=== PATIENT | female | born 1995 | race Two or more races ===

== ENCOUNTER 2019-12-12 10:20 | Outpatient (CLI) | payer BC ==
[2019-12-12 11:21] LABS: BASOPHILS # (AUTO) 0.1 /CMM (0.0-0.2); EOSINOPHILS % (AUTO) 1.9 % (0.0-6.0); HEMATOCRIT 33 % (33-45); HEMOGLOBIN 10.7 g/dL (11.5-14.8); LYMPHOCYTES # (AUTO) 1.6 /CMM (0.8-4.8); LYMPHOCYTES % (AUTO) 25.4 % (20.0-44.0); MEAN CORPUSCULAR HGB CONC 33 g/dl (31.0-36.0); MEAN CORPUSCULAR VOLUME 76 fL (82-100); MONOCYTES # (AUTO) 0.3 /CMM (0.1-1.30); MONOCYTES % (AUTO) 5.1 % (2.0-12.0); NEUTROPHILS # (AUTO) 4.3 /CMM (1.8-8.9); NEUTROPHILS % (AUTO) 66.6 % (43.0-81.0); PLATELET COUNT (AUTO) 290 /CMM (150-450); RED BLOOD CELL COUNT(AUTO) 4.35 MIL/uL (4.0-5.2); WHITE BLOOD COUNT (AUTO) 6.4 K/uL (4.3-11.0)
[2019-12-12 11:23] LABS: ALBUMIN 3.9 g/dL (3.4-5.0); BILIRUBIN,TOTAL 0.4 mg/dL (0.2-1.0); CALCIUM, SERUM 9.3 mg/dL (8.5-10.1); CREATININE 0.7 mg/dL (0.6-1.3); POTASSIUM 4.1 mmol/L (3.5-5.1); TOTAL PROTEIN, SERUM 7.2 g/dL (6.4-8.2)
[2019-12-12 11:34] LABS: THYROID STIMULATING HORMONE 2.297 uIU/mL (0.358-3.74)
[2019-12-12 12:19] LABS: APPEARANCE,URINE CLOUDY (CLEAR); BILIRUBIN,URINE NEGATIVE (NEGATIVE); BLOOD, URINE MODERATE Ery/uL (NEGATIVE); COLOR,URINE YELLOW (YELLOW); KETONES,URINE NEGATIVE (NEGATIVE); LEUKOCYTE ESTERASE ,URINE MODERATE (NEGATIVE); NITRITE, URINE NEGATIVE (NEGATIVE); PROTEIN,URINE NEGATIVE (NEGATIVE); UGLUCOSE NEGATIVE (NEGATIVE); UROBILINOGEN,URINE 0.2 EU/dL (0.2)
[2019-12-12 13:00] LABS: BACTERIA,URINE Moderate /HPF (None Seen); SQUAMOUS EPITHELIAL CELL,UR Moderate /HPF (None Seen)
[2019-12-13 07:10] LABS: FOLLICLE STIMULATION HORMONE 4.9 mIU/mL (.); LUTEINIZING HORMONE 9.8 mIU/mL (.); PROLACTIN 10.3 ng/mL (4.8-23.3)
== END 2019-12-12 23:59 | disposition home or self-care (01) ==
LOC: LAB 10:20
PROVIDERS: ATTEND Family Medicine
DX: Z00.01 Encounter for general adult medical examination with abnormal findings (principal); R89.1 Abnormal level of hormones in specimens from other organs, systems and tissues
CPT/HCPCS: 36415; 80053-TC; 80061-TC; 81000-TC; 83001; 83002; 84146; 84439-TC; 84443-TC; 85025-TC; 87086-TC

== ENCOUNTER 2020-01-03 14:42 | Outpatient (CLI) | payer BC ==
[2020-01-03 16:03] LABS: BASOPHILS # (AUTO) 0.1 /CMM (0.0-0.2); BASOPHILS % (AUTO) 1.4 % (0.0-2.0); EOSINOPHILS % (AUTO) 1.2 % (0.0-6.0); HEMATOCRIT 33 % (33-45); HEMOGLOBIN 10.5 g/dL (11.5-14.8); LYMPHOCYTES # (AUTO) 1.3 /CMM (0.8-4.8); MEAN CORPUSCULAR HGB CONC 32 g/dl (31.0-36.0); MEAN CORPUSCULAR VOLUME 76 fL (82-100); MONOCYTES # (AUTO) 0.3 /CMM (0.1-1.30); MONOCYTES % (AUTO) 4.4 % (2.0-12.0); NEUTROPHILS # (AUTO) 5.3 /CMM (1.8-8.9); PLATELET COUNT (AUTO) 311 /CMM (150-450); RED BLOOD CELL COUNT(AUTO) 4.34 MIL/uL (4.0-5.2); WHITE BLOOD COUNT (AUTO) 7.1 K/uL (4.3-11.0)
[2020-01-03 16:14] LABS: IRON, SERUM 35 ug/dl (50-175); TOTAL IRON BINDING CAPACITY 809 ug/dl (250-450)
[2020-01-03 16:32] LABS: FERRITIN 8 ng/mL (8-388)
== END 2020-01-03 23:59 | disposition home or self-care (01) ==
LOC: LAB 14:42
PROVIDERS: ATTEND Family Medicine
DX: D64.9 Anemia, unspecified (principal); E61.1 Iron deficiency; R89.1 Abnormal level of hormones in specimens from other organs, systems and tissues
CPT/HCPCS: 36415; 82728-TC; 83540-TC; 85025-TC

== ENCOUNTER 2020-02-14 14:28 | Outpatient (CLI) | payer BC | END 2020-02-14 23:59 | disposition home or self-care (01) | DX: R13.10 Dysphagia, unspecified (principal); E53.9 Vitamin B deficiency, unspecified ==

== ENCOUNTER 2020-06-07 08:40 | Outpatient (CLI) | payer BC ==
[2020-06-07 09:26] LABS: BASOPHILS # (AUTO) 0.1 /CMM (0.0-0.2); BASOPHILS % (AUTO) 1.3 % (0.0-2.0); EOSINOPHILS % (AUTO) 2.3 % (0.0-6.0); HEMATOCRIT 37 % (33-45); HEMOGLOBIN 12.9 g/dL (11.5-14.8); LYMPHOCYTES # (AUTO) 1.3 /CMM (0.8-4.8); LYMPHOCYTES % (AUTO) 23.7 % (20.0-44.0); MEAN CORPUSCULAR HGB CONC 35 g/dl (31.0-36.0); MEAN CORPUSCULAR VOLUME 92 fL (82-100); MONOCYTES # (AUTO) 0.3 /CMM (0.1-1.30); MONOCYTES % (AUTO) 4.6 % (2.0-12.0); NEUTROPHILS # (AUTO) 3.9 /CMM (1.8-8.9); NEUTROPHILS % (AUTO) 68.1 % (43.0-81.0); PLATELET COUNT (AUTO) 242 /CMM (150-450); RED BLOOD CELL COUNT(AUTO) 4.08 MIL/uL (4.0-5.2); WHITE BLOOD COUNT (AUTO) 5.7 K/uL (4.3-11.0)
[2020-06-07 09:27] LABS: BILIRUBIN,URINE NEGATIVE (NEGATIVE); COLOR,URINE YELLOW (YELLOW); LEUKOCYTE ESTERASE ,URINE TRACE (NEGATIVE); NITRITE, URINE NEGATIVE (NEGATIVE); PROTEIN,URINE NEGATIVE (NEGATIVE); UGLUCOSE NEGATIVE (NEGATIVE); UROBILINOGEN,URINE 0.2 EU/dL (0.2)
[2020-06-07 09:49] LABS: ALBUMIN 3.9 g/dL (3.4-5.0); CREATININE 0.6 mg/dL (0.6-1.3); POTASSIUM 3.9 mmol/L (3.5-5.1); TOTAL PROTEIN, SERUM 6.9 g/dL (6.4-8.2)
[2020-06-07 10:23] LABS: RBC,URINE 0-2 /HPF (0-2)
[2020-06-07 10:24] LABS: BACTERIA,URINE Moderate /HPF (None Seen); SQUAMOUS EPITHELIAL CELL,UR Moderate /HPF (None Seen); WBC,URINE 0-3 /HPF (0-3)
[2020-06-08 09:08] LABS: FOLIC ACID 9.7 ng/mL (>3.0)
== END 2020-06-07 23:59 | disposition home or self-care (01) ==
LOC: LAB 08:40
PROVIDERS: ATTEND Family Medicine
DX: K21.9 Gastro-esophageal reflux disease without esophagitis (principal); E53.9 Vitamin B deficiency, unspecified; K59.09 Other constipation; Z79.899 Other long term (current) drug therapy
CPT/HCPCS: 36415; 80053-TC; 80061-TC; 81001; 82306; 84439-TC; 84443-TC; 85025-TC; 87086-TC

== ENCOUNTER 2020-09-07 08:57 | Outpatient (CLI) | payer BC ==
[2020-09-07 10:38] LABS: BASOPHILS # (AUTO) 0.1 /CMM (0.0-0.2); BASOPHILS % (AUTO) 1.2 % (0.0-2.0); EOSINOPHILS % (AUTO) 2.7 % (0.0-6.0); HEMATOCRIT 40 % (33-45); HEMOGLOBIN 13.7 g/dL (11.5-14.8); LYMPHOCYTES # (AUTO) 1.5 /CMM (0.8-4.8); LYMPHOCYTES % (AUTO) 26.9 % (20.0-44.0); MEAN CORPUSCULAR HGB CONC 35 g/dl (31.0-36.0); MEAN CORPUSCULAR VOLUME 91 fL (82-100); MONOCYTES # (AUTO) 0.3 /CMM (0.1-1.30); MONOCYTES % (AUTO) 4.7 % (2.0-12.0); NEUTROPHILS # (AUTO) 3.7 /CMM (1.8-8.9); NEUTROPHILS % (AUTO) 64.5 % (43.0-81.0); PLATELET COUNT (AUTO) 238 /CMM (150-450); RED BLOOD CELL COUNT(AUTO) 4.34 MIL/uL (4.0-5.2); WHITE BLOOD COUNT (AUTO) 5.8 K/uL (4.3-11.0)
[2020-09-07 11:29] LABS: THYROID STIMULATING HORMONE 1.791 uIU/mL (0.358-3.74)
[2020-09-07 11:41] LABS: ALBUMIN 4.1 g/dL (3.4-5.0); BILIRUBIN,TOTAL 0.7 mg/dL (0.2-1.0); CALCIUM, SERUM 9.4 mg/dL (8.5-10.1); CREATININE 0.6 mg/dL (0.6-1.3); POTASSIUM 4.1 mmol/L (3.5-5.1); TOTAL PROTEIN, SERUM 7.5 g/dL (6.4-8.2)
[2020-09-08 04:06] LABS: THYROID PEROXIDASE (TPO) AB <9 IU/mL (0-34)
== END 2020-09-07 23:59 | disposition home or self-care (01) ==
LOC: US 08:57
PROVIDERS: ATTEND Family Medicine
DX: R53.83 Other fatigue (principal); R10.819 Abdominal tenderness, unspecified site
CPT/HCPCS: 36415; 76700-TC; 80053-TC; 80061-TC; 82607-TC; 82728-TC; 83540-TC; 84439-TC; 84443-TC; 85025-TC; 86376; 86800

== ENCOUNTER 2020-09-19 11:12 | Outpatient (CLI) | payer BC | END 2020-09-19 23:59 | disposition home or self-care (01) | LOC: LAB 11:12 | PROVIDERS: ATTEND Family Medicine | DX: R53.83 Other fatigue (principal) | CPT/HCPCS: 36415; 84146 ==

== ENCOUNTER 2020-11-02 19:50 | Inpatient (IN) | payer BC ==
[~2020-11-02] VITALS: Ht 170.2 cm; Wt 96.6 kg
[2020-11-02 21:30] VITALS: BP 131/85
--- NOTE | 2020-11-02 21:50 | NUR ---
RN NOTES PAGED DR. TAN FOR ADMISSION ORDERS.
[2020-11-02] MEDS ORDERED: FLUO10CA26 PO (22:25)
[2020-11-02] MEDS ORDERED: CYAN-51 PO (22:25)
[2020-11-02] MEDS ORDERED: POLY17PO4 PO (22:25)
[2020-11-02] MEDS ORDERED: VIT500LI PO (22:25)
[2020-11-02] MEDS ORDERED: MAGN400T8 PO (22:25)
[2020-11-02] MEDS ORDERED: PANT40TA2 PO (22:25)
--- NOTE | 2020-11-02 22:27 | NUR ---
RN NOTES ADMISSION ORDERS RECEIVED FROM DR. TAN, CARRIED OUT.
[2020-11-02] MEDS ORDERED: MAG HYDROX/AL HYDROX/SIMETH 30 ML UDC PO PRN (23:00)
[2020-11-02] MEDS ORDERED: Z GUARD REMEDY 2 OZ OINT TP PRN (23:00)
[2020-11-02] MEDS ORDERED: ONDANSETRON HCL/PF 4 MG/2 ML VIAL IVP PRN (23:00)
[2020-11-02] MEDS ORDERED: MAGNESIUM HYDROXIDE 30 ML UDC PO PRN (23:00)
[2020-11-02] MEDS ORDERED: ZOLPIDEM TARTRATE 5 MG TABLET PO PRN (23:00)
--- NOTE | 2020-11-02 23:53 | NUR ---
[facility] ADMITTING NOTES ADMITTED A 25 Y/O FEMALE PATIENT VIA DIRECT ADMISSION. PATIENT ARRIVED VIA GURNEY FROM [facility] ACCOMPANIED BY 2 EMT'S FROM [facility] AND PATIENT'S PARENTS. PATIENT IS ALERT AND ORIENTED X 4. ON ROOM AIR TOLERATING WELL, NO SIGNS AND SYMPTOMS OF ACUTE DISTRESS NOTED. VITAL SIGNS TAKEN AND RECORDED. AFEBRILE, VS WITHIN NORMAL LIMITS. NOTED WITH IV ACCESS ON PATIENT'S RIGHT AC, PATENT AND FLUSHES WELL. NO REDNESS NOTED. NOTED WITH ABSCESS NO PERIRECTAL AREA. PICTURE TAKEN AND FILED TO CHART. NO COMPLAINTS OF PAIN AT THE TIME OF ASSESSMENT. SAFETY PRECAUTIONS IN PLACE; BED ON LOWEST LOCKED POSITION, SIDE RAILS UP X 2. ARMBAND PLACED ON PATIENT'S RIGHT WRIST. KEPT CALL LIGHT WITHIN EASY REACH. INSTRUCTED TO CALL FOR ASSISTANCE WHEN NEEDED. PATIENT VERBALIZED UNDERSTANDING. DR. TAN MADE AWARE OF ADMISSION VIA PHONE CALL. WILL CONTINUE TO MONITOR PATIENT'S CURRENT STATUS. Addendum: 11/03/20 at 0009 by KAILA ROSS RN ABOVE NOTES FOR 2124 ADMISSION.
[2020-11-03] MEDS ORDERED: PIPERACILLIN /TAZOBACTAM 3.375 G in IV D5W 50 ML IV SCH
[2020-11-03] MEDS ORDERED: VANCOMYCIN 1 GM VIAL ONE ×2 (00:54→00:57)
[2020-11-03] MEDS ORDERED: VANCOMYCIN 1.5 GM in IV D5W 500ml IV ONE (01:00)
--- NOTE | 2020-11-03 01:30 | NUR ---
RN NOTES INITIAL DOSE OF VANCOMYCIN 1.5GMS IN 500ML NS ADMINISTERED ORDERED, TOLERATING WELL, NO A/R NOTED.
[2020-11-03] MEDS ORDERED: MEROPENEM 1 G VIAL IV ONE (04:31)
[2020-11-03] MEDS ORDERED: MEROPENEM 1 G in IV NS 0.9% 100 ML IV ONE (05:00)
--- NOTE | 2020-11-03 05:00 | NUR ---
MSRN FIRST DOSE OF MERREM ADMINISTERED NO UNTOWARD REACTION. BRP VOIDED FREELY.
--- NOTE | 2020-11-03 06:34 | NUR ---
MSRN WOUND FOR CULTURE AND GRAM STAIN SENT TO LAB. MRSA SURVEILLANCE SENT
--- NOTE | 2020-11-03 06:39 | NUR ---
MS RN CLOSING NOTES PATIENT IN BED, AWAKE, MOTHER AT BEDSIDE. PATIENT IS ON ROOM AIR TOLERATING WELL,NO SOB NOTED, NO SIGNS AND SYMPTOMS OF ACUTE DISTRESS NOTED. VS WITHIN NORMAL LIMITS. IV ACCESS ON PATIENT'S RIGHT AC, PATENT AND FLUSHES WELL. NO REDNESS NOTED. NO COMPLAINTS OF PAIN AT THIS TIME. WOUND CONSULT TRIGGERED. SAFETY PRECAUTIONS IN PLACE; BED ON LOWEST LOCKED POSITION, SIDE RAILS UP X 2. KEPT CALL LIGHT WITHIN EASY REACH. ENDORSED TO MORNING NURSE FOR CONTINUITY OF CARE.
[2020-11-03 06:51] LABS: BASOPHILS % (AUTO) 0.8 % (0.0-2.0); EOSINOPHILS % (AUTO) 2.4 % (0.0-6.0); HEMATOCRIT 31 % (33-45); HEMOGLOBIN 10.8 g/dL (11.5-14.8); LYMPHOCYTES # (AUTO) 1.1 /CMM (0.8-4.8); LYMPHOCYTES % (AUTO) 18.2 % (20.0-44.0); MEAN CORPUSCULAR HGB CONC 35 g/dl (31.0-36.0); MEAN CORPUSCULAR VOLUME 91 fL (82-100); MONOCYTES # (AUTO) 0.4 /CMM (0.1-1.30); MONOCYTES % (AUTO) 7.1 % (2.0-12.0); NEUTROPHILS # (AUTO) 4.4 /CMM (1.8-8.9); NEUTROPHILS % (AUTO) 71.5 % (43.0-81.0); PLATELET COUNT (AUTO) 237 /CMM (150-450); WHITE BLOOD COUNT (AUTO) 6.2 K/uL (4.3-11.0)
[2020-11-03 07:21] LABS: CALCIUM, SERUM 8.8 mg/dL (8.5-10.1); CREATININE 0.6 mg/dL (0.6-1.3); MAGNESIUM 1.8 mg/dL (1.8-2.4); PHOSPHORUS 4.7 mg/dL (2.5-4.9); POTASSIUM 3.8 mmol/L (3.5-5.1)
--- NOTE | 2020-11-03 07:30 | NUR ---
MS RN OPENING NOTES PATIENT RESTING IN BED, ALERT/ORIENTED X 4, PATIENT ABLE TO MAKE NEEDS KNOWN. MOTHER PRESENT AT BEDSIDE. PATIENT ON ROOM AIR; BREATHING EVEN AND UNLABORED; NO SOB PRESENT AT THIS TIME. MILD PAIN PRESENT BUT NO MEDICATION REQUESTED. RAC #20G IV ACCESS PRESENT AND INTACT. SAFETY MEASURES IN PLACE, CALL LIGHT AND TABLE WITHIN REACH, BED LOCKED IN LOWEST POSITION, SIDE RAILS UP X 2. WILL CONTINUE TO MONITOR PATIENT.
[2020-11-03 08:00] VITALS: BP 109/64
[2020-11-03] MEDS: MAGNESIUM OXIDE 400 MG TABLET PO SCH (08:18)
[2020-11-03] MEDS: Fluoxetine 10 mg capsule PO SCH (08:19)
[2020-11-03] MEDS: POLYETHYLENE GLYCOL 3350 17 GM POWD.PACK PO SCH (08:19)
[2020-11-03] MEDS: ASCORBIC ACID 500 MG TABLET PO SCH (08:19)
[2020-11-03] MEDS: PANTOPRAZOLE 40 MG TABLET.DR PO SCH (08:19)
[2020-11-03] MEDS: CYANOCOBALAMIN 500 MCG TABLET PO SCH (08:19)
[2020-11-03] MEDS: VANCOMYCIN 1 GM in IV D5W 250ml IV SCH ×2 (09:28→16:13)
[2020-11-03] MEDS: ACETAMINOPHEN 325 MG TABLET PO PRN ×2 (11:10→23:33)
--- NOTE | 2020-11-03 11:22 | NUR ---
MS RN NOTES PATIENT COMPLAINING OF HEADACHE 4 OUT OF 10; REQUESTING MEDICATION. PRN TYLENOL ADMINISTERED. WILL REASSESS.
[2020-11-03] MEDS: MEROPENEM 1 G in IV NS 0.9% 100 ML IV SCH ×2 (12:44→21:06)
[2020-11-03 16:00] VITALS: BP 107/66
--- NOTE | 2020-11-03 19:05 | NUR ---
MS RN CLOSING NOTES PATIENT RESTING IN BED, ALERT/ORIENTED X 4, PATIENT ABLE TO MAKE NEEDS KNOWN. MOTHER PRESENT AT BEDSIDE. PATIENT ON ROOM AIR; BREATHING EVEN AND UNLABORED; NO SOB PRESENT DURING THE DAY. PAIN TREATED WITH PRN TYLENOL. LFA #20G IV ACCESS PRESENT AND INTACT. ALL NEEDS ATTENDED THROUGHOUT THE DAY. SAFETY MEASURES IN PLACE, CALL LIGHT AND TABLE WITHIN REACH, BED LOCKED IN LOWEST POSITION, SIDE RAILS UP X 2. WILL ENDORSE TO COUNSELING CASE MANAGER NURSE.
[2020-11-03 20:00] VITALS: BP 105/62
--- NOTE | 2020-11-03 21:18 | NUR ---
MS/TELE/RN AT INITIAL SHIFT ROUNDING, RECEIVED PATIENT LYING IN BED AWAKE, ALERT, ORIENTED, COMFORTABLE, NO C/O PAIN, NO DISTRESS NOTED MOTHER AT BEDSIDE. PATIENT C/O REDNESS AT IV SITE, IV WAS REMOVED AND INSERTED NEW IV AT RT. F/A G22, PATIENT TOLERATED. WILL MONITOR.
[2020-11-04] MEDS: VANCOMYCIN 1 GM in IV D5W 250ml IV SCH ×5 (01:05→18:25)
--- NOTE | 2020-11-04 02:00 | NUR ---
MS/TELE/RN PATIENT IS SLEEPING AT THIS TIME, APPEAR COMFORTABLE, NO SIGNS OF DISTRESS NOTED, CALL LIGHT IN REACH, WILL CONTINUE TO MONITOR.
[2020-11-04] MEDS: MEROPENEM 1 G in IV NS 0.9% 100 ML IV SCH ×2 (05:04→13:00)
--- NOTE | 2020-11-04 06:19 | NUR ---
MS/TELE/RN PATIENT IS AWAKE, ALERT, COMFORTABLE, NO C/O PAIN, NO DISTRESS NOTED, CALL LIGHT IN REACH, ALL NEEDS ATTENDED AT THIS TIME, WILL CONTINUE TO MONITOR.
[2020-11-04 07:16] LABS: CALCIUM, SERUM 8.5 mg/dL (8.5-10.1); CREATININE 0.6 mg/dL (0.6-1.3); POTASSIUM 3.7 mmol/L (3.5-5.1)
--- NOTE | 2020-11-04 07:50 | NUR ---
MS RN OPENING NOTES PATIENT IS IN BED RESTING, PATIENT IS IN NO ACUTE DISTRESS. PATIENT IS AMBULATORY WITH ASSISTANCE. SAFETY PRECAUTIONS ARE ON, BED IS LOCKED IN THE LOWEST POSITION, WITH SIDE RAILS UP, WILL CONTINUE TO MONITOR CLOSELY.
[2020-11-04] MEDS: ACETAMINOPHEN 325 MG TABLET PO PRN (07:58)
[2020-11-04 08:40] VITALS: BP 107/67
[2020-11-04] MEDS: POLYETHYLENE GLYCOL 3350 17 GM POWD.PACK PO SCH (09:00)
[2020-11-04] MEDS: MAGNESIUM OXIDE 400 MG TABLET PO SCH (09:00)
[2020-11-04] MEDS: PANTOPRAZOLE 40 MG TABLET.DR PO SCH (10:12)
[2020-11-04] MEDS: ASCORBIC ACID 500 MG TABLET PO SCH (10:13)
[2020-11-04] MEDS: Fluoxetine 10 mg capsule PO SCH (10:13)
[2020-11-04] MEDS: CYANOCOBALAMIN 500 MCG TABLET PO SCH (10:15)
--- NOTE | 2020-11-04 10:26 | NUR ---
MS RN NOTE PATIENTS VANCO LEVEL IS 22, WITHHELD MORNING DOSE OF VANCOMYCIN
--- NOTE | 2020-11-04 10:29 | NUR ---
MS RN NOTE PATIENTS VANCO LEVEL IS INACCURATE DUE TO LAB DRAWING BLOOD AT THE WRONG TIME, PHARMACY IS AWARE, SAID TO CONTINUE TO ADMINISTER VANCOMYCIN
[2020-11-04 13:50] LABS: PHOSPHORUS 4.9 mg/dL (2.5-4.9)
--- NOTE | 2020-11-04 13:56 | NUR ---
MS RN NOTE PATIENT IS FEELING SLEEPY AND SEEING DOTS AND COLORS AFTER THE MEDICATION MERREM, REPORTED TO DR. JONES, PER MD ORDER DC MEDICATION MERREM DR. JONES IS AWARE.
[2020-11-04 16:23] VITALS: BP 104/66
--- NOTE | 2020-11-04 18:27 | NUR ---
MS RN NOTE PATIENT CARLOTTA THROUGH LEVEL IS 22, SPOKE WITH PHARMACY, PER PHARMACY IT IS OK TO GIVE ANOTHER DOSE.
--- NOTE | 2020-11-04 19:35 | NUR ---
MS/RN OPENING NOTE RECEIVED PATIENT RESTING IN BED. AWAKE, ALERT AND ORIENTED X 4. ABLE TO MAKE NEEDS KNOWN. NO COMPLAINTS OF PAIN AT THIS TIME. CONTINUES ON ROOM AIR WITH NO S/SX OF RESPIRATORY DISTRESS NOTED. IV ACCESS TO RIGHT FOREARM #20G INTACT, PATENT AND SALINE LOCKED. CONTINUES ON IV ABX. PATIENT TO BE NPO AT MIDNIGHT FOR SCHEDULED SURGERY IN AM. PATIENT AWARE, ALL CONSENTS SIGNED. FAMILY CURRENTLY AT BEDSIDE. ALL NEEDS ATTENDED TO. SHAI LIGHT WITHIN REACH. ASPIRATION, FALL AND SAFETY PRECAUTIONS MAINTAINED. WILL CONTINUE TO MONITOR.
[2020-11-04 20:00] VITALS: BP 102/56
--- NOTE | 2020-11-04 20:03 | NUR ---
MS RN CLOSING NOTES PATIENT IS IN BED RESTING, PATIENT IS IN NO ACUTE DISTRESS. PATIENT IS AMBULATORY WITH ASSISTANCE. PATIENTS FAMILY IS VERY INVOLVED AND VERY NEEDY. SAFETY PRECAUTIONS ARE ON, BED IS LOCKED IN THE LOWEST POSITION, WITH SIDE RAILS UP, ENDORSE PATIENT TO PELLETIZER TENDER NURSE FOR MONI.
[2020-11-05] MEDS: VANCOMYCIN 1 GM in IV D5W 250ml IV SCH ×2 (02:34→13:11)
--- NOTE | 2020-11-05 05:37 | NUR ---
MS/RN NOTE PATIENT REFUSED FOR PICTURES TO BE TAKEN OF RECTAL WOUND.
--- NOTE | 2020-11-05 06:20 | NUR ---
MS/RN CLOSING NOTE PATIENT CURRENTLY SLEEPING IN BED. ALERT AND ORIENTED X 4. ABLE TO MAKE NEEDS KNOWN. NO COMPLAINTS OF PAIN AT THIS TIME. CONTINUES ON ROOM AIR WITH NO S/SX OF RESPIRATORY DISTRESS NOTED. IV ACCESS TO RIGHT FOREARM #20G INTACT, PATENT AND SALINE LOCKED. CONTINUES ON IV ABX. PATIENT HAS BEEN NPO SINCE MIDNIGHT. ALL CONSENTS SIGNED. FAMILY CURRENTLY AT BEDSIDE. ALL NEEDS ATTENDED TO. CALL LIGHT WITHIN REACH. ASPIRATION, FALL AND SAFETY PRECAUTIONS MAINTAINED. WILL ENDORSE PLAN OF CARE TO ONCOMING SHIFT.
[2020-11-05 06:31] LABS: BASOPHILS # (AUTO) 0.1 /CMM (0.0-0.2); BASOPHILS % (AUTO) 0.8 % (0.0-2.0); EOSINOPHILS % (AUTO) 3.3 % (0.0-6.0); HEMATOCRIT 31 % (33-45); HEMOGLOBIN 10.9 g/dL (11.5-14.8); LYMPHOCYTES # (AUTO) 1.3 /CMM (0.8-4.8); LYMPHOCYTES % (AUTO) 19.9 % (20.0-44.0); MEAN CORPUSCULAR HGB CONC 35 g/dl (31.0-36.0); MEAN CORPUSCULAR VOLUME 91 fL (82-100); MONOCYTES # (AUTO) 0.6 /CMM (0.1-1.30); MONOCYTES % (AUTO) 8.7 % (2.0-12.0); NEUTROPHILS # (AUTO) 4.5 /CMM (1.8-8.9); NEUTROPHILS % (AUTO) 67.3 % (43.0-81.0); PLATELET COUNT (AUTO) 270 /CMM (150-450); RED BLOOD CELL COUNT(AUTO) 3.44 MIL/uL (4.0-5.2); WHITE BLOOD COUNT (AUTO) 6.7 K/uL (4.3-11.0)
[2020-11-05 07:01] LABS: CALCIUM, SERUM 8.8 mg/dL (8.5-10.1); CREATININE 0.5 mg/dL (0.6-1.3); MAGNESIUM 1.9 mg/dL (1.8-2.4); PHOSPHORUS 4.2 mg/dL (2.5-4.9); POTASSIUM 3.9 mmol/L (3.5-5.1)
--- NOTE | 2020-11-05 08:00 | NUR ---
MS RN OPENING NOTE RECEIVED PATIENT RESTING IN BED. MOTHER AT BEDSIDE. EASY TO AROUSE, A/O X4 WITH SOME DELAY. STABLE ON ROOM AIR - NO SOB NOTED. NO PAIN NOTED AT THIS TIME. IV ACCESS TO RIGHT FOREARM #20 - INTACT, PATENT AND SALINE LOCKED. PATIENT IS NPO AT THIS TIME FOR SURGERY. PATIENT WAITING TO BE PICKED UP FOR SURGERY. SAFETY MEASURES IN PLACE. CALL LIGHT WITHIN REACH. WILL CONTINUE TO MONITOR.
[2020-11-05] MEDS: POLYETHYLENE GLYCOL 3350 17 GM POWD.PACK PO SCH ×2 (08:17→20:35)
[2020-11-05] MEDS: ASCORBIC ACID 500 MG TABLET PO SCH (08:17)
[2020-11-05] MEDS: PANTOPRAZOLE 40 MG TABLET.DR PO SCH (08:17)
[2020-11-05] MEDS: CYANOCOBALAMIN 500 MCG TABLET PO SCH (08:17)
[2020-11-05] MEDS: Fluoxetine 10 mg capsule PO SCH (08:26)
[2020-11-05] MEDS: MAGNESIUM OXIDE 400 MG TABLET PO SCH ×2 (08:26→09:00)
[2020-11-05] MEDS ORDERED: CEFTRIAXONE 1 G in IV D5W 50 ML IV SCH (08:30)
[2020-11-05] MEDS ORDERED: HYDROMORPHONE INJ 2 MG/ML DISP.SYRIN ONE (08:48)
[2020-11-05] MEDS ORDERED: MIDAZOLAM HCL 2 MG/2ML VIAL ONE (08:48)
[2020-11-05] MEDS ORDERED: ROCURONIUM BROMIDE 50 MG/5 ML ONE (08:49)
[2020-11-05 08:51] VITALS: BP 100/59
--- NOTE | 2020-11-05 08:59 | NUR ---
WOUND CARE CONSULT: PT PRESENTS WITH RT BUTTOCK SURGICAL WOUND AND DISTAL INDURATED AREA, PRESENT ON ADMISSION. PT FOLLOWED BY DR COBURN PER PT MOTHER AT BEDSIDE. DRY DRESSING IN PLACE. MOTHER IS DOING WOUND CARE. WILL SEE PT NEEDED.
--- NOTE | 2020-11-05 09:22 | NUR ---
PATIENT LEFT FOR SURGERY @ 5402
[2020-11-05] MEDS: LEVOFLOXACIN 500 MG /D5W 100ML 500 MG in PREMIX 1 EA IV SCH (11:58)
--- NOTE | 2020-11-05 12:05 | NUR ---
PATIENT ARRIVED BACK FROM SURGERY
[2020-11-05 16:38] VITALS: BP 108/74
--- NOTE | 2020-11-05 18:35 | NUR ---
MS RN CLOSING NOTE PATIENT CURRENTLY LYING IN BED, AWAKE. MOTHER AT BEDSIDE. PATIENT IS STATUS POST FISTULOTOMY/DEBRIDEMENT FROM TODAY, 11/05, WITH DR. COBURN. DRESSING IS CLEAN, DRY AND INTACT. DRESSING IS NOT TO BE TOUCHED FOR 48 HOURS PER MD. PATIENT STABLE ON ROOM AIR - NO SOB OR DISTRESS NOTED. PATIENT STATES 5/10 PAIN BUT TOLERABLE IF SHE RESTS. IV ACCESS TO RIGHT FOREARM #20 - PATENT AND INTACT, SALINE LOCKED. AMBULATORY WITH ASSIST. PATIENT IS REQUESTING TO HAVE MIRALAX TONIGHT SINCE SHE SKIPPED MORNING DOSE. SAFETY MEASURES IN PLACE. CALL LIGHT WITHIN REACH. WILL ENDORSE TO HOMOGENIZER OPERATOR NURSE FOR MONI.
[2020-11-05 20:00] VITALS: BP 102/64
--- NOTE | 2020-11-05 20:08 | NUR ---
MS RN OPENING PATIENT IN BED WITH 2 FAMILY MEMBERS IN THE ROOM. A/OX4. NO S/S OF DISTRESS. NO C/O PAIN AT THIS TIME. NO IV RUNNING. DRESSING DRY AND INTACT. SAFETY IN PLACE: BED IN LOWEST, LOCKED POSITION; CALL LIGHT WITHIN REACH. WILL CONTINUE TO MONITOR.
[2020-11-05] MEDS: ACETAMINOPHEN 325 MG TABLET PO PRN (20:36)
--- NOTE | 2020-11-05 20:38 | NUR ---
MS RN NOTES PATIENT ASKED FOR MIRALAX AND TYLENOL. REPORTING MILD PAIN 3/10. GIVEN MIRALAX AND TYLENOL. WILL CONT. TO MONITOR.
[2020-11-06] MEDS: VANCOMYCIN 1 GM in IV D5W 250ml IV SCH ×2 (01:00→13:49)
--- NOTE | 2020-11-06 01:31 | NUR ---
MS RN NOTES HELD 0100 AM DOSE OF IV VANCOMYCIN. VANCO THROUGH IS 28. CHARGE NURSE AWARE. PER BRIAN ARANDA, NO NEED TO CALL THE PHARMACY.
[2020-11-06] MEDS: ACETAMINOPHEN 325 MG TABLET PO PRN ×2 (03:56→12:48)
[2020-11-06 06:02] LABS: BASOPHILS # (AUTO) 0.1 /CMM (0.0-0.2); BASOPHILS % (AUTO) 0.6 % (0.0-2.0); EOSINOPHILS % (AUTO) 0.7 % (0.0-6.0); HEMATOCRIT 32 % (33-45); LYMPHOCYTES # (AUTO) 1.5 /CMM (0.8-4.8); LYMPHOCYTES % (AUTO) 16.6 % (20.0-44.0); MEAN CORPUSCULAR HGB CONC 35 g/dl (31.0-36.0); MEAN CORPUSCULAR VOLUME 91 fL (82-100); MONOCYTES # (AUTO) 0.7 /CMM (0.1-1.30); MONOCYTES % (AUTO) 7.3 % (2.0-12.0); NEUTROPHILS # (AUTO) 6.9 /CMM (1.8-8.9); NEUTROPHILS % (AUTO) 74.8 % (43.0-81.0); PLATELET COUNT (AUTO) 293 /CMM (150-450); RED BLOOD CELL COUNT(AUTO) 3.47 MIL/uL (4.0-5.2); WHITE BLOOD COUNT (AUTO) 9.2 K/uL (4.3-11.0)
--- NOTE | 2020-11-06 06:48 | NUR ---
MS RN CLOSING NOTE PATIENT IN BED WITH EYES CLOSED. EASY TO AROUSE. A/OX4. MOM BY THE BEDSIDE WITH PATIENT. NO S/S OF APPARENT DISTRESS. PAIN MANAGED WITH MEDICATION. NO IV FLUID RUNNING, IV LINE PATENT AND INTACT -- FLUSHED WITH SALINE. DRESSING CLEAN, DRY, AND INTACT. HELD AM VANCO. ALL NEEDS ATTENDED. SAFETY KEPT IN PLACE THE WHOLE SHIFT: BED IN LOWEST, LOCKED POSITION; CALL LIGHT WITHIN REACH. NO SIGNIFICANT CHANGE SINCE LAST SHIFT. WILL ENDORSE CARE TO AM SHIFT RN.
[2020-11-06 06:51] LABS: CALCIUM, SERUM 9.1 mg/dL (8.5-10.1); CREATININE 0.6 mg/dL (0.6-1.3); POTASSIUM 3.9 mmol/L (3.5-5.1)
--- NOTE | 2020-11-06 07:08 | NUR ---
WOUND CARE FOLLOW UP: PT HAS PACKING/DRESSING TO PERIANAL AREA AFTER HAVING SURGERY YESTERDAY AM. DRESSING TO BE LEFT IN PLACE FOR 72 HRS PER SURGEON. DISCUSSED WITH PT'S MOTHER AT BEDSIDE AND NURSING STAFF. WILL SEE PT PRN.
--- NOTE | 2020-11-06 07:44 | NUR ---
MS RN OPENING NOTE RECEIVED PATIENT RESTING IN BED. MOTHER AT BEDSIDE. EASY TO AROUSE, A/O X4 WITH SOME DELAY. STABLE ON ROOM AIR - NO SOB NOTED. NO PAIN NOTED AT THIS TIME. IV ACCESS TO RIGHT FOREARM #20 - INTACT, PATENT AND SALINE LOCKED. SAFETY MEASURES IN PLACE. CALL LIGHT WITHIN REACH. WILL CONTINUE TO MONITOR.
[2020-11-06] MEDS: Fluoxetine 10 mg capsule PO SCH (08:06)
[2020-11-06] MEDS: MAGNESIUM OXIDE 400 MG TABLET PO SCH ×3 (08:06→14:52)
[2020-11-06] MEDS: CYANOCOBALAMIN 500 MCG TABLET PO SCH (08:07)
[2020-11-06] MEDS: PANTOPRAZOLE 40 MG TABLET.DR PO SCH (08:07)
[2020-11-06] MEDS: ASCORBIC ACID 500 MG TABLET PO SCH (08:07)
[2020-11-06] MEDS: LEVOFLOXACIN 500 MG /D5W 100ML 500 MG in PREMIX 1 EA IV SCH (09:09)
[2020-11-06] MEDS ORDERED: HYDROCODONE/APAP 5/325MG TABLET PO PRN (12:30)
[2020-11-06 16:00] VITALS: BP 98/58
--- NOTE | 2020-11-06 18:42 | NUR ---
MS RN CLOSING NOTE PATIENT CURRENTLY LYING IN BED, AWAKE. MOTHER AT BEDSIDE. PATIENT IS STATUS POST FISTULOTOMY/DEBRIDEMENT 11/05, WITH DR. COBURN. DRESSING IS CLEAN, DRY AND INTACT. PATIENT HAD A BOWEL MOVEMENT THIS MORNING - DRESSING IS STILL INTACT. DRESSING IS NOT TO BE TOUCHED FOR 48 HOURS PER MD. PATIENT STABLE ON ROOM AIR - NO SOB OR DISTRESS NOTED. IV ACCESS TO RIGHT FOREARM #20 - PATENT AND INTACT, SALINE LOCKED. AMBULATORY WITH ASSIST. PATIENT STATED THAT SHE WAS FEELING WEAK AND FATIGUED - MD AWARE. SAFETY MEASURES IN PLACE. CALL LIGHT WITHIN REACH. WILL ENDORSE TO BROKE WORKER NURSE FOR MONI.
--- NOTE | 2020-11-06 19:41 | NUR ---
MS RN OPENING PATIENT IN BED. A/OX4. MOM BY THE BEDSIDE. NO S/S OF APPARENT DISTRESS. NO C/O PAIN AT THE MOMENT. NO IV FLUID RUNNING. DRESSING CLEAN, DRY, AND INTACT. SAFETY IN PLACE: BED IN LOWEST, LOCKED POSITION; CALL LIGHT WITHIN REACH. WILL CONTINUE TO MONITOR.
[2020-11-06 20:08] VITALS: BP 99/51
[2020-11-06] MEDS: POLYETHYLENE GLYCOL 3350 17 GM POWD.PACK PO SCH (20:10)
[2020-11-07] MEDS: VANCOMYCIN 1 GM in IV D5W 250ml IV SCH ×2 (00:49→13:30)
--- NOTE | 2020-11-07 06:50 | NUR ---
MS RN CLOSING NOTE PATIENT IN BED. A/OX4. MOM BY THE BEDSIDE WITH PATIENT. NO S/S OF APPARENT DISTRESS. PAIN MANAGED WITH MEDICATION. NO IV FLUID RUNNING, IV LINE PATENT AND INTACT -- FLUSHED WITH SALINE. DRESSING CLEAN, DRY, AND INTACT. ALL NEEDS ATTENDED. ALL SCHED MEDS ADMINISTERED. SAFETY KEPT IN PLACE THE WHOLE SHIFT: BED IN LOWEST, LOCKED POSITION; CALL LIGHT WITHIN REACH. NO SIGNIFICANT CHANGE SINCE LAST SHIFT. WILL ENDORSE CARE TO AM SHIFT RN.
[2020-11-07 06:53] LABS: CALCIUM, SERUM 8.7 mg/dL (8.5-10.1); CREATININE 0.5 mg/dL (0.6-1.3)
--- NOTE | 2020-11-07 07:26 | NUR ---
MS RN OPENING NOTES PATIENT RECEIVED AWAKE IN BED IN NO ACUTE SIGNS OF DISTRESS. MOTHER AT BEDSIDE. A/O X4. ABLE TO MAKE NEEDS KNOWN, DENIES PAIN OR ANY DISCOMFORTS AT THIS TIME. ON ROOM AIR, BREATHING EVEN AND UNLABORED. IV ACCESS ON RFA G#22 PATENT AND INTACT. SAFETY MEASURES IN PLACE: CALL LIGHT WITHIN REACH, BED IN LOCKED AND LOWEST POSITION, SIDE RAILS UP X2. WILL MONITOR PATIENT ACCORDINGLY
[2020-11-07 08:00] VITALS: BP 91/58
[2020-11-07] MEDS: CYANOCOBALAMIN 500 MCG TABLET PO SCH (08:16)
[2020-11-07] MEDS: ASCORBIC ACID 500 MG TABLET PO SCH (08:16)
[2020-11-07] MEDS: MAGNESIUM OXIDE 400 MG TABLET PO SCH (08:16)
[2020-11-07] MEDS: PANTOPRAZOLE 40 MG TABLET.DR PO SCH (08:16)
[2020-11-07] MEDS: Fluoxetine 10 mg capsule PO SCH (08:16)
[2020-11-07] MEDS: LEVOFLOXACIN 500 MG /D5W 100ML 500 MG in PREMIX 1 EA IV SCH (09:17)
[2020-11-07] MEDS ORDERED: FLUCONAZOLE (100 MG) 100 MG TABLET PO ONE (13:30)
[2020-11-07] MEDS: ENSURE ENLIVE 237 ML LIQUID (VANILLA) PO SCH ×2 (14:51→17:30)
[2020-11-07 16:00] VITALS: BP 108/66
--- NOTE | 2020-11-07 18:58 | NUR ---
MS RN CLOSING NOTES PATIENT IN BED AWAKE AT THIS TIME WITH FAMILY AT BEDSIDE. PT IS A/O X4. ABLE TO MAKE NEEDS KNOWN. ON ROOM AIR, BREATHING EVEN AND UNLABORED, NO SOB NOTED DURING THE DAY. IV ACCESS ON RIGHT HAND G#24 INTACT, PATENT AND FLUSHES WELL. SAFETY MEASURES KEPT IN PLACE: BED LOCKED AND LOWEST POSITION, SIDE RAILS UP X2. CALL LIGHT AND BEDSIDE TABLE W/IN EASY REACH OF PT ALL NEEDS AND CARE ATTENDED WELL. WILL ENDORSE MONI TO CLINIC SUPERVISOR NURSE.
--- NOTE | 2020-11-07 19:30 | NUR ---
MS RN OPENING NOTE RECEIVED PT IN BED. AOX4. PT IS ON RA. NO SOB NOTED. NO S/S OF DISTRESS NOTED. PT IS BRP WIT ASSIST AND INDEPENDENT; PT HAS NO C/O PAIN AT THIS TIME; RESPIRATIONS EVEN AND UNLABORED, IV ACCESS NOTED IN RHAND G# 24, INTACT, PATENT, AND FLUSHING WELL. FALL AND SAFETY MEASURES IN PLACE AND MAINTAINED AT ALL TIMES; BED ALARM ON, BED IN LOW AND LOCKED POSITION, HOB ELEVATED TO SEMI FOWLERS POSITION, CALL LIGHT AND TABLE WITHIN REACH, SIDE RAILS UPX2. WILL CONTINUE WITH PLAN OF CARE
[2020-11-07 20:00] VITALS: BP 106/62
[2020-11-08] MEDS: VANCOMYCIN 1 GM in IV D5W 250ml IV SCH ×2 (01:02→12:48)
--- NOTE | 2020-11-08 06:30 | NUR ---
RN CLOSING NOTE PT RESTING IN BED COMFORTABLY AT THIS TIME, EASY TO AROUSE. PT REMAINED STABLE THROUGHOUT SHIFT. ALL NEEDS, MEDICATIONS, AND CARE ADMINISTERED ANTICIPATED PER ORDER; PT ENCOURAGED TO REPOSITION Q2H AND PRN. FAMILY MEMBER AT BEDSIDE AT THIS TIME. SAFETY PRECAUTIONS IN PLACE AND MAINTAINED AT ALL TIMES. BED IN LOWEST POSITION, HOB ELEVATED, SIDE RAILS UP X2. CALL LIGHT AND TABLE WITHIN REACH. WILL ENDORSE TO DAY SHIFT NURSE FOR MONI.
[2020-11-08 07:13] LABS: CALCIUM, SERUM 8.5 mg/dL (8.5-10.1); CREATININE 0.5 mg/dL (0.6-1.3); POTASSIUM 3.9 mmol/L (3.5-5.1)
--- NOTE | 2020-11-08 07:19 | NUR ---
MS RN OPENING NOTES RECEIVED PT ASLEEP IN BED, EASILY AWAKENS. MOTHER AT BEDSIDE. PT IS A/O X4. ABLE TO MAKE NEEDS KNOWN, DENIES PAIN OR ANY DISCOMFORTS AT THIS TIME. ON ROOM AIR, BREATHING EVEN AND UNLABORED. IV ACCESS ON RIGHT HAND G#24 PATENT AND INTACT. SAFETY MEASURES IN PLACE: CALL LIGHT WITHIN REACH, BED LOCKED AND IN LOWEST POSITION, SIDE RAILS UP X2. WILL MONITOR PATIENT ACCORDINGLY
[2020-11-08 08:00] VITALS: BP 111/72
[2020-11-08] MEDS: POLYETHYLENE GLYCOL 3350 17 GM POWD.PACK PO SCH (08:23)
[2020-11-08] MEDS: ENSURE ENLIVE 237 ML LIQUID (VANILLA) PO SCH ×2 (08:23→17:28)
[2020-11-08] MEDS: PANTOPRAZOLE 40 MG TABLET.DR PO SCH (08:24)
[2020-11-08] MEDS: CYANOCOBALAMIN 500 MCG TABLET PO SCH (08:24)
[2020-11-08] MEDS: LEVOFLOXACIN (250MG) 250 MG TABLET PO SCH (08:24)
[2020-11-08] MEDS: ASCORBIC ACID 500 MG TABLET PO SCH (08:24)
[2020-11-08] MEDS: MAGNESIUM OXIDE 400 MG TABLET PO SCH (08:25)
[2020-11-08] MEDS: Fluoxetine 10 mg capsule PO SCH (08:25)
--- NOTE | 2020-11-08 09:58 | NUR ---
WOUND CARE FOLLOW UP: PT SEEN FOR RT BUTTOCK DRESSING CHANGE. ORDERS CLARIFIED WITH DR COBURN. DISCUSSED WITH NURSING STAFF. DRESSING TO BE CHANGED THIS AM. PT IN RESTROOM AT THIS TIME. DISCUSSED WITH PT'S MOTHER.
--- NOTE | 2020-11-08 10:37 | NUR ---
WOUND CARE: RT BUTTOCK SURGICAL WOUND PACKED WITH IODOFORM PACKING (TWO PIECES USED) AND COVERED WITH FOAM AND ABD PAD, SECURED WITH PAPER TAPE. PT TOLERATED WELL. DISCUSSED SKIN PROTECTION WITH NURSING STAFF. GERSON BAHENA NP WAS IN TO EXAMINE PT AND EVALUATED WOUND. MD IN AGREEMENT WITH PLAN OF CARE. Addendum: 11/08/20 at 1040 by SAUNDRA STRICKLAND WNDNU Amended: Links added.
--- NOTE | 2020-11-08 10:48 | NUR ---
RN NOTES WOUND DRESSING CHANGED THIS MORNING BY WOUND NURSE SAUNDRA AND SHE STATED THAT SHE PACKED THE WOUNDS WITH 2 PIECES OF IODOFORM PACKET THEN COVERED WITH FOAM DRESSING AND ABDOMINAL PAD.
[2020-11-08] MEDS ORDERED: LEVO500T90 PO (14:18)
[2020-11-08] MEDS ORDERED: LINE600T12 PO (14:18)
[2020-11-08] MEDS ORDERED: LOPERAMIDE HCL (2 MG CAP) 2 MG CAPSULE PO PRN (15:00)
[2020-11-08] MEDS ORDERED: METR500T PO (15:44)
--- NOTE | 2020-11-08 15:54 | NUR ---
RN NOTES PT C/O LOOSE STOOL X4 TODAY. TOOL SALVAGE WORKER BAHENA MADE AWARE WITH ORDER TO GIVE PT LOPERAMIDE 2MG PO Q 4HRS AND PRN AND TO COLLECT STOOL FOR C-DIFF TEST.
[2020-11-08 16:00] VITALS: BP 104/67
--- NOTE | 2020-11-08 17:29 | NUR ---
RN NOTES SMOKE AND FLAME SPECIALIST BAHENA INSERTED MIDLINE G#18 ON PT'S DAVID. PIV ON RIGHT HAND#24 REMOVED WITH NO ACTIVE BLEEDING NOTED. DRY DRESSING APPLIED TO SITE.
--- NOTE | 2020-11-08 18:41 | NUR ---
MS RN CLOSING NOTES PATIENT IN BED WATCHING TV AT THIS TIME. A/O X4. ABLE TO MAKE NEEDS KNOWN. AMBULATORY WITH ASSIST. ON ROOM AIR, BREATHING EVEN AND UNLABORED, NO SOB NOTED DURING THE DAY. MEDLINE ON DAVID G#18 INTACT, PATENT AND FLUSHES WELL. SAFETY MEASURES KEPT IN PLACE: BED LOCKED AND LOWEST POSITION, SIDE RAILS UP X2 AND CALL LIGHT, BEDSIDE TABLE W/IN EASY REACH OF PT. BED ALARM ON. ALL NEEDS AND CARE ATTENDED WELL. WILL ENDORSE MONI TO EXTERMINATOR TERMITE NURSE Addendum: 11/08/20 at 1923 by JANETH PARK RN CORRECTION: MIDLINE ON DAVID IS SIZE 20, NOT SIZE 18
--- NOTE | 2020-11-08 19:24 | NUR ---
CORRECTION: MIDLINE ON DAVID IS SIZE 20G, NOT SIZE 18G
--- NOTE | 2020-11-08 19:40 | NUR ---
MS RN NOTES PATIENT IN BED WATCHING TV AT THIS TIME. A/O X4. ABLE TO MAKE NEEDS KNOWN. AMBULATORY WITH ASSIST. ON ROOM AIR, BREATHING EVEN AND UNLABORED, NO SOB NOTED DURING THE DAY. MIDLINE ON DAVID G#18 INTACT, PATENT AND FLUSHES WELL. SAFETY MEASURES KEPT IN PLACE: BED LOCKED AND LOWEST POSITION, SIDE RAILS UP X2 AND CALL LIGHT, BEDSIDE TABLE W/IN EASY REACH OF PT. BED ALARM ON. ALL NEEDS AND CARE MET AT THIS TIME WILL CONTINUE TO MONITOR.
[2020-11-08 20:00] VITALS: BP 108/60
[2020-11-08] MEDS: METRONIDAZOLE 500 MG TABLET PO SCH (21:10)
[2020-11-09] MEDS: VANCOMYCIN 1 GM in IV D5W 250ml IV SCH ×2 (01:39→12:54)
[2020-11-09] MEDS: METRONIDAZOLE 500 MG TABLET PO SCH ×3 (05:27→21:10)
--- NOTE | 2020-11-09 06:44 | NUR ---
MS RN NOTES PATIENT IN BED ASLEEP AT THIS TIME. A/O X4. ABLE TO MAKE NEEDS KNOWN. AMBULATORY WITH ASSIST. ON ROOM AIR, BREATHING EVEN AND UNLABORED, NO SOB NOTED DURING THE DAY. MIDLINE ON DAVID G#18 INTACT, PATENT AND FLUSHES WELL. ALL DUE MEDS GIVEN AND TOLERATED WELL. SAFETY MEASURES KEPT IN PLACE: BED LOCKED AND LOWEST POSITION, SIDE RAILS UP X2 AND CALL LIGHT, BEDSIDE TABLE W/IN EASY REACH OF PT. BED ALARM ON. ALL NEEDS AND CARE MET AT THIS TIME WILL ENDORSE CARE TO DAY SHIFT NURSE.
[2020-11-09 06:45] LABS: CALCIUM, SERUM 8.7 mg/dL (8.5-10.1); CREATININE 0.6 mg/dL (0.6-1.3); POTASSIUM 4.1 mmol/L (3.5-5.1)
[2020-11-09 08:00] VITALS: BP 104/59
[2020-11-09] MEDS: ENSURE ENLIVE 237 ML LIQUID (VANILLA) PO SCH ×2 (08:00→17:00)
[2020-11-09] MEDS: MAGNESIUM OXIDE 400 MG TABLET PO SCH (08:45)
[2020-11-09] MEDS: POLYETHYLENE GLYCOL 3350 17 GM POWD.PACK PO SCH (08:45)
[2020-11-09] MEDS: ASCORBIC ACID 500 MG TABLET PO SCH (08:53)
[2020-11-09] MEDS: PANTOPRAZOLE 40 MG TABLET.DR PO SCH (08:53)
[2020-11-09] MEDS: LEVOFLOXACIN (250MG) 250 MG TABLET PO SCH (08:53)
[2020-11-09] MEDS: CYANOCOBALAMIN 500 MCG TABLET PO SCH (08:53)
[2020-11-09] MEDS: Fluoxetine 10 mg capsule PO SCH (08:53)
--- NOTE | 2020-11-09 09:32 | NUR ---
WOUND CARE FOLLOW UP: PT SEEN FOR DRESSING CHANGE OF RT BUTTOCK SURGICAL WOUND (PERIRECTAL ABSCESS SURGERY). WOUND WAS PACKED WITH IODOFORM PACKING, COVERED WITH GAUZE AND ABD PAD, SECURED WITH PAPER TAPE. ONE PIECE OF IODOFORM PACKING WAS USED AND TWO OPEN WOUND SITES COMMUNICATE (ONE WOUND CAVITY). PT TOLERATED WELL. DISCUSSED SKIN PROTECTION WITH NURSING STAFF.
--- NOTE | 2020-11-09 09:45 | NUR ---
m/s physician general internal medicine: notes pt had another bowel movement, but not loose more like pasty stool. sent stool for cdiff to lab. hina burgess (helen) aware.
--- NOTE | 2020-11-09 11:30 | NUR ---
m/s bracelet maker novelty: md visit seen and examined by hina burgess (sifting operator) with order to discharge to [facility]. order acknowledged.
--- NOTE | 2020-11-09 17:34 | NUR ---
m/s seed service advisor: notes vonnie holley notified spoke to maryjo and informed me that no one can take report, weight shifter can take report as stated.
--- NOTE | 2020-11-09 18:30 | NUR ---
m/s legal service specialist: notes discharge instructions given to mother and verbalized understanding. [facility] at 2000. pt and mother aware. all questions and concerns answered. instructed to call for assistance.
--- NOTE | 2020-11-09 19:00 | NUR ---
m/s shank cementer hand: notes pt for discharge to [facility] at 2000 tonight. report given to kirit (rn) for continuity of care.
[2020-11-09 20:00] VITALS: BP 101/64
--- NOTE | 2020-11-09 20:07 | NUR ---
MS RN NOTES REPORT GIVEN TO RN DISTRIBUTION DESIGNER ANGELY IN [facility] AWAITING FOR RETAIL BAKERY MANAGER. ALL D/C PAPERWORK GIVEN TO MOM OF THE PT DISCHARGE INSTRUCTIONS GIVEN BOTH VERBALLY AND WRITTEN WILL CONTINUE TO MONITOR.
--- NOTE | 2020-11-09 21:50 | NUR ---
MS RN NOTES PT PICKED UP BY TWO EMT'S PT IN STABLE CONDITION. REPORT GIVEN.
[2020-11-10] MEDS ORDERED: MICONAZOLE NITRATE VAG CREAM 45 GM TUBE VG SCH (09:00)
== END 2020-11-09 22:06 | DRG 358 ==
LOC: MED 21:20
PROVIDERS: ADMIT Internal Medicine; ATTEND Nurse Practitioner Family
PROC: 0JBB0ZZ Excision of Perineum Subcutaneous Tissue and Fascia, Open Approach (ICD-10-PCS; principal; 2020-11-05)
PROC: 05H933Z Insertion of Infusion Device into Right Brachial Vein, Percutaneous Approach (ICD-10-PCS; 2020-11-08)
DX: K61.1 Rectal abscess (principal); K62.89 Other specified diseases of anus and rectum; F41.9 Anxiety disorder, unspecified; F32.9 Major depressive disorder, single episode, unspecified; E66.01 Morbid (severe) obesity due to excess calories; Z68.33 Body mass index [BMI] 33.0-33.9, adult; R62.50 Unspecified lack of expected normal physiological development in childhood; B96.89 Other specified bacterial agents as the cause of diseases classified elsewhere; Z88.0 Allergy status to penicillin; Z88.2 Allergy status to sulfonamides
CPT/HCPCS: 36415; 80048-TC; 80061-TC; 80202-TC; 83735-TC; 84100-TC; 84703-TC; 85025-TC; 85730-TC; 87070-TC; 87075-TC; 87081-TC; 87186-TC; 92526; 92611-TC; 97116-TC; 97530-TC; A4216; A4217; A6253; A6402; A6403; A6407; G0378; J1100; J1170; J1885; J1956; J2185; J2250; J2405; J2704; J3370; J3490; J7030; J7050; J7060

== ENCOUNTER 2021-01-14 11:32 | Outpatient (CLI) | payer BC ==
[~2021-01-14 11:32] MED LIST: CYAN-51 PO; LEVO500T90 PO; LINE600T12 PO; MAGN400T8 PO; METR500T PO; PANT40TA2 PO; POLY17PO4 PO; VIT500LI PO
[2021-01-14 12:47] LABS: BASOPHILS # (AUTO) 0.1 K/uL (0.0-0.2); BASOPHILS % (AUTO) 0.9 % (0.0-2.0); EOSINOPHILS % (AUTO) 1.3 % (0.0-6.0); HEMATOCRIT 36 % (33-45); HEMOGLOBIN 12.7 g/dL (11.5-14.8); LYMPHOCYTES # (AUTO) 1.7 K/uL (0.8-4.8); LYMPHOCYTES % (AUTO) 24.4 % (20.0-44.0); MEAN CORPUSCULAR HGB CONC 35 g/dl (31.0-36.0); MEAN CORPUSCULAR VOLUME 90 fL (82-100); MONOCYTES # (AUTO) 0.4 K/uL (0.1-1.30); MONOCYTES % (AUTO) 5.1 % (2.0-12.0); NEUTROPHILS # (AUTO) 4.7 K/uL (1.8-8.9); NEUTROPHILS % (AUTO) 68.3 % (43.0-81.0); PLATELET COUNT (AUTO) 273 K/uL (150-450); RED BLOOD CELL COUNT(AUTO) 4.03 MIL/uL (4.0-5.2); WHITE BLOOD COUNT (AUTO) 6.9 K/uL (4.3-11.0)
[2021-01-14 13:05] LABS: ALBUMIN 3.8 g/dL (3.4-5.0); BILIRUBIN,TOTAL 0.4 mg/dL (0.2-1.0); CREATININE 0.5 mg/dL (0.6-1.3); POTASSIUM 4.2 mmol/L (3.5-5.1)
[2021-01-14 13:13] LABS: FREE T4 (FREE THYROXINE) 0.97 ng/dL (0.76-1.46); THYROID STIMULATING HORMONE 2.761 uIU/mL (0.358-3.74)
== END 2021-01-14 23:59 | disposition home or self-care (01) ==
LOC: LAB 11:32
PROVIDERS: ATTEND Family Medicine
DX: G56.01 Carpal tunnel syndrome, right upper limb (principal); K61.1 Rectal abscess; K59.09 Other constipation; I80.9 Phlebitis and thrombophlebitis of unspecified site
CPT/HCPCS: 36415; 80053-TC; 80061-TC; 82306; 84439-TC; 84443-TC; 85025-TC

== ENCOUNTER 2021-02-04 14:45 | Outpatient (CLI) | payer BC ==
[2021-02-04] MEDS ORDERED: DAKINS HALF STRENGTH (0.25%) 480 ML BOTTLE ONE (15:36)
== END 2021-02-04 23:59 | disposition home or self-care (01) ==
LOC: WOU 14:45
PROVIDERS: ATTEND Surgery
DX: T81.49XA Infection following a procedure, other surgical site, initial encounter (principal); L03.317 Cellulitis of buttock; F41.1 Generalized anxiety disorder; F32.9 Major depressive disorder, single episode, unspecified; R62.50 Unspecified lack of expected normal physiological development in childhood
CPT/HCPCS: 11043; 87070-TC; 87075-TC; 87186-TC; A6407

== ENCOUNTER 2021-02-11 14:00 | Outpatient (CLI) | payer BC ==
[2021-02-11 15:34] LABS: IRON, SERUM 103 ug/dl (50-175); TOTAL IRON BINDING CAPACITY 310 ug/dl (250-450)
[2021-02-11 15:47] LABS: FERRITIN 24 ng/mL (8-388)
== END 2021-02-11 23:59 | disposition home or self-care (01) ==
LOC: LAB 14:00
PROVIDERS: ATTEND Family Medicine
DX: E55.9 Vitamin D deficiency, unspecified (principal); E53.9 Vitamin B deficiency, unspecified
CPT/HCPCS: 36415; 82607-TC; 82728-TC; 83540-TC

== ENCOUNTER 2021-02-11 14:20 | Outpatient (CLI) | payer BC ==
[2021-02-11] MEDS ORDERED: LIDOCAINE HCL/MPF 1% 30 ML VIAL IJ ONE (15:06)
== END 2021-02-11 23:59 | disposition home health service (06) ==
LOC: WOU 14:20
PROVIDERS: ATTEND Surgery
DX: L03.317 Cellulitis of buttock (principal); B96.89 Other specified bacterial agents as the cause of diseases classified elsewhere; F41.1 Generalized anxiety disorder; F32.9 Major depressive disorder, single episode, unspecified
CPT/HCPCS: 11043; A6407; J3490

== ENCOUNTER 2021-02-18 14:46 | Outpatient (CLI) | payer BC ==
[2021-02-18] MEDS ORDERED: LIDOCAINE 2% JEL 5 ML TUBE ONE (14:58)
== END 2021-02-18 23:59 | disposition home health service (06) ==
LOC: WOU 14:46
PROVIDERS: ATTEND Surgery
DX: L03.317 Cellulitis of buttock (principal); F41.1 Generalized anxiety disorder; F32.A Depression, unspecified
CPT/HCPCS: 11043; A6407

== ENCOUNTER 2021-02-25 14:45 | Outpatient (CLI) | payer BC | END 2021-02-25 23:59 | disposition home health service (06) | LOC: WOU 14:45 | PROVIDERS: ATTEND Surgery | DX: L03.317 Cellulitis of buttock (principal); F41.1 Generalized anxiety disorder; F32.A Depression, unspecified | CPT/HCPCS: 11042; 87070-TC; 87075-TC; 87186-TC ==

== ENCOUNTER 2021-03-04 14:50 | Outpatient (CLI) | payer BC | END 2021-03-04 23:59 | disposition home health service (06) | LOC: WOU 14:50 | PROVIDERS: ATTEND Surgery | DX: L03.317 Cellulitis of buttock (principal); F41.1 Generalized anxiety disorder; F32.A Depression, unspecified | CPT/HCPCS: 11043 ==

== ENCOUNTER 2021-03-11 14:46 | Outpatient (CLI) | payer BC ==
[2021-03-11] MEDS ORDERED: LIDOCAINE SOLN 4% 50 ML BOTTLE ONE (14:57)
== END 2021-03-11 23:59 | disposition home health service (06) ==
LOC: WOU 14:46
PROVIDERS: ATTEND Surgery
DX: L03.317 Cellulitis of buttock (principal); F41.1 Generalized anxiety disorder; F41.9 Anxiety disorder, unspecified; F32.A Depression, unspecified
CPT/HCPCS: G0463

== ENCOUNTER 2021-04-01 14:45 | Outpatient (CLI) | payer SELFPAY ==
[2021-04-01] MEDS ORDERED: LIDOCAINE 2% JEL 5 ML TUBE ONE (15:02)
== END 2021-04-01 23:59 | disposition home health service (06) ==
LOC: WOU 14:45
PROVIDERS: ATTEND Surgery
DX: L03.317 Cellulitis of buttock (principal); T81.89XA Other complications of procedures, not elsewhere classified, initial encounter; F41.1 Generalized anxiety disorder; F32.A Depression, unspecified